=== PATIENT | female | born 1975 | race Caucasian/White ===

== ENCOUNTER 2021-11-02 10:29 | Outpatient (CLI) | payer BC, OTHER | END 2021-11-02 10:30 | disposition home or self-care (01) | LOC: CSHMAMMO 10:29 | PROVIDERS: ATTEND Obstetrics & Gynecology | DX: Z12.31 Encounter for screening mammogram for malignant neoplasm of breast (principal) | CPT/HCPCS: 77063; 77067 ==

== ENCOUNTER 2022-12-21 12:03 | Outpatient (CLI) | payer BC, OTHER | END 2022-12-21 12:04 | disposition home or self-care (01) | LOC: CSHMAMMO 12:03 | PROVIDERS: ATTEND Obstetrics & Gynecology | DX: Z12.31 Encounter for screening mammogram for malignant neoplasm of breast (principal) | CPT/HCPCS: 77063; 77067 ==